=== PATIENT | female | born 1990 | race Hispanic/Latino ===

== ENCOUNTER 2019-05-08 00:04 | Observation (INO) | payer BC ==
[~2019-05-08 00:04] MED LIST: BETAMET ACET/BETAMET NA PH 6 MG/ML VIAL IM ONE; TERBUTALINE SULF 1 MG/1ML ONE; hydrOXYzine HCl 25 MG TAB ONE
[2019-05-08] MEDS ORDERED: hydrOXYzine HCl 25 MG TAB PO PRN (00:59)
[2019-05-08] MEDS ORDERED: TERBUTALINE SULF 1 MG/1ML SQ ONE (01:01)
[2019-05-08] MEDS: NIFEdipine 10 MG CAP PO SCH ×2 (08:12→14:34)
--- NOTE | 2019-05-08 08:24 | P.PN ---
Date of Service: 05/08/19 No complaints this am, rested well. No regular ctx seen. Plan, start Nifedipin po, watch for ctx, give second dose of Celestone this evening.
[2019-05-08] MEDS ORDERED: PRENATAL VITAMIN PO SCH (09:00)
[2019-05-08] MEDS ORDERED: DOCUSATE NA/SENNA CONC 1 TAB PO SCH (09:00)
[2019-05-08] MEDS ORDERED: AMLODIPINE 10 MG TAB PO SCH (09:00)
--- NOTE | 2019-05-08 13:17 | PREOPHP ---
Date of Admission: 05/08/2019 History Of Present Illness: Ms. Zamudio is a 29-year-old female, 3, para 0- 0-2-0, now at approximately 29 weeks gestation. She has been noticing more pelvic pressure, discomfo rt, heaviness and was brought to Labor and Delivery for monitoring to see if she was having contracti ons. Urine culture had been done last week, which was negative. Past Medical History: Please see record. Family History: Please see record. Review of Systems: She reports no recent cough, cold, fever, or chills. No recent nausea or vomiting. has been active. She denies any vaginal bleeding or spotting. She has had some constipation issues. Physical Examination: General: Reveals pleasant female, in no apparent distress. Neck: Supple without adenopathy or thyromegaly. Lungs: Clear. Cardiac: Regular rate and rhythm without murmurs. Breasts: Not examined. Abdomen: Estimated weight consistent with gestational age of 29 weeks. Pelvic: Exam in the office yesterday, cervix was closed, 50%, vertex -1 station. Extremities: No cyanosis, clubbing, or edema. On initial evaluation, she was having regular contrac tions approximately every 3-4 minutes. Because of this, was given a dose of terbutaline and p.o. Colton rax. Contractions stopped almost immediately. She was dismissed to return for her second dose of Ce lestone Soluspan for lung maturity. She returned, however, late in the evening with continued cramping, although regular contractions were not seen. Because of this, she was admitted, given 1 an other dose of terbutaline and a p.o. Atarax and will be observed through the day. Will be started on nifedipine 20 mg 1 p.o. t.i.d. and see how she does during the day and we will get her second dose o f Celestone Soluspan, at that time we can determine whether or not she should be sent home or not. Impression: 1.A 29 week . 2. labor. Plan: As above. NERI/TYLER Voice ID: [id number]
[2019-05-08] MEDS ORDERED: BETAMET ACET/BETAMET NA PH 6 MG/ML VIAL IM ONE (17:45)
--- NOTE | 2019-05-09 02:24 | DS ---
Hospital Course: Ms. Zamudio is a 29-year-old , female, 3, para 0-0-2-0, now at 29+ weeks' gestation, admitted in for suspected labor with some cervical change. Because of this, she was given 2 doses of Celestone Soluspan 24 hours apart and after a couple of doses of te rbutaline, was started on nifedipine 20 mg 1 p.o. t.i.d. She did well during the day with few of any contractions. She will be dismissed to be seen back in my office in 1 week after her last dose of C elestone. NERI/TYLER Voice ID: [id number] Report ID: [id number]
== END 2019-05-09 17:00 | disposition home or self-care (01) ==
LOC: L&D 00:04 → 2ND-WC 00:41
PROVIDERS: ADMIT Specialist; ATTEND Specialist
DX: O60.03 Preterm labor without delivery, third trimester (principal); Z3A.29 29 weeks gestation of pregnancy
CPT/HCPCS: 96372; G0378; J3105

== ENCOUNTER 2019-07-03 11:18 | Inpatient (IN) | payer BC ==
[2019-07-03] MEDS ORDERED: Ringers Lactate 1,000 ML IV PRN (11:39)
[2019-07-03 11:41] VITALS: BMI 29.6
[2019-07-03] MEDS ORDERED: BUTORPHANOL 1 MG/ML INJ IV ONE (11:42)
[2019-07-03] MEDS ORDERED: PROMETHAZINE 25 MG/ML VIAL IV ONE (11:42)
[2019-07-03] MEDS ORDERED: OXYTOCIN/LR 20 UNIT/1,000 ML BAG IV ONE (11:55)
[2019-07-03] MEDS ORDERED: Ringers Lactate 1,000 ML IV SCH (12:00)
[2019-07-03] MEDS ORDERED: OXYTOCIN/LR 20 UNIT/1,000 ML BAG IV SCH ×2 (12:00→23:45)
[2019-07-03 12:15] LABS: Absolute Lymphocytes (CBC) 1.2 K/uL (0.7-4.9); Basophils % 0.3 % (0-1.3); Hematocrit 36.5 % (36.0-45.0); Lymphocytes % 14.9 % (15.3-44.8); MPV 11.6 fL (7.6-11.3); RBC Red Blood Cell Count 4.01 M/uL (3.86-4.86)
--- NOTE | 2019-07-03 15:24 | PREOPHP ---
Date of Admission: 07/03/2019 History Of Present Illness: Ms. Zamudio is a 29-year-old female, 2, para 0-0 -1-0, now at 37 weeks gestation. She has been followed by me during this with possible pre term labor. She had been on medication for this until stopped at 36 weeks gestation. She presents w ith a 24-hour history of possible rupture of membrane. She was evaluated in Labor and Delivery and w ith negative evaluation. However, she has continued leaking, presents for her normal exam, were chito s rupture of membranes is confirmed. She denies recent cough or cold. Past Medical History: Please see record. Family History: Please see record. Review of Systems: She reports no recent cough, cold, fever, or chills. No recent nausea or vomiting. No breast knots or lumps. No bowel or bladder issues. Infant has been active. She has continued to leak since yest erday morning about 5 a.m. Physical Examination: General: Reveals pleasant female, in no apparent distress. Neck: Supple without adenopathy or thyromegaly. Lungs: Clear. Cardiac: Regular rate and rhythm without murmurs. Breasts: Not examined. Abdomen: Estimated weight approximately 7 pounds. Pelvic: Cervix noted to be 1 cm, 50% effaced, vertex, and -1 to -2 station. Gross pooling of amniot ic fluid, which was rapidly Nitrazine positive is noted in the vaginal vault. Extremities: No cyanosis, clubbing, or edema. Impression: 1.A 37 weeks . 2.Spontaneous premature rupture of membranes. Plan: Patient will be admitted for delivery. She is strep negative. We will simply watch the infan t for signs of amnionitis and we will induce labor. NERI/MODL Voice ID: [id number]
[2019-07-03] MEDS ORDERED: FENTANYL CITR 100 MCG/2 ML IV ONE (17:00)
[2019-07-03] MEDS ORDERED: ROPIVACAINE HCL 20 ML ONE (17:50)
[2019-07-03] MEDS ORDERED: 0.2% ROPIVACAINE (200 MG/100 ML) BAG IV ONE ×2 (18:00)
--- NOTE | 2019-07-03 19:08 | P.PN ---
Date of Service: 07/03/19 Cx 4cm, pt has epidural in place, periodic decellerations with good recovery with late onset noted, 02 on, bolus of fluid given, positioned to left lateral position, will do type and screen and observe for resolution. Discussed with pt. and and staff.
[2019-07-03 19:13] LABS: Urine Appearance CLEAR; Urine Bilirubin NEGATIVE (NEG); Urine Blood NEGATIVE (NEG); Urine Color YELLOW; Urine Glucose NEGATIVE (NEG); Urine Protein NEGATIVE (NEG); Urine Specific Gravity 1.015 (1.005-1.030); Urine Urobilinogen 0.2 mg/dL (0.2-1.0)
[2019-07-03 19:51] LABS: Urine Bacteria <20 /HPF (<20); Urine Culture Reflex Order NOT NEEDED; Urine RBC <5 /HPF (NONE SEEN)
[2019-07-03] MEDS ORDERED: METHYLERGONOVINE 0.2MG/ML AMP IM ONE (20:33)
[2019-07-03] MEDS ORDERED: CARBOPROST TROME 250 MCG/ML IM ONE (20:33)
[2019-07-03] MEDS ORDERED: LIDOCAINE 1% MPF 30 ML VIAL ONE (20:33)
[2019-07-03] MEDS ORDERED: METHYLERGONOVINE 0.2 MG TAB PO PRN (23:31)
[2019-07-03] MEDS ORDERED: CARBOPROST TROME 250 MCG/ML IM PRN (23:31)
[2019-07-03] MEDS ORDERED: ONDANSETRON 4 MG (ODT) TAB PO PRN (23:31)
[2019-07-03] MEDS ORDERED: METHYLERGONOVINE 0.2MG/ML AMP IM PRN (23:31)
--- NOTE | 2019-07-03 23:35 | P.BOP ---
Preoperative diagnosis: 37 wk , prolonged PROM, non-reassuring fht's Postoperative diagnosis: same, delivery viable female infant Primary procedure: low forceps, vtx OA Secondary procedure: right midline episiotomy and repair Estimated blood loss: less than 300ml Anesthesia: epidural Complications: None Transferred to: Other (273) Condition: Good
[2019-07-03] MEDS: IBUPROFEN 200 MG TAB PO PRN (23:45)
[2019-07-04 05:35] LABS: Absolute Lymphocytes (CBC) 1.4 K/uL (0.7-4.9); Basophils % 0.4 % (0-1.3); Hematocrit 33.2 % (36.0-45.0); Lymphocytes % 11.3 % (15.3-44.8); MPV 11.1 fL (7.6-11.3); RBC Red Blood Cell Count 3.68 M/uL (3.86-4.86)
--- NOTE | 2019-07-04 07:31 | P.PN ---
No ocmplaints except soreness of perineum, routine post care discussed. Probable dismissal on .
[2019-07-04] MEDS: Oxycodone HCl/Acetaminophen 1 TAB TAB PO PRN ×3 (07:33→21:00)
[2019-07-04] MEDS: DOCUSATE CALCIUM 240 MG CAP PO PRN (14:41)
[2019-07-04] MEDS: IBUPROFEN 200 MG TAB PO PRN (19:45)
[2019-07-04 21:15] LABS: RPR (Rapid Plasma Reagin) NON-REACT (NON-REACT)
[2019-07-05] MEDS: IBUPROFEN 200 MG TAB PO PRN (05:15)
[2019-07-05] MEDS: DOCUSATE CALCIUM 240 MG CAP PO PRN (05:15)
[2019-07-05] MEDS: Oxycodone HCl/Acetaminophen 1 TAB TAB PO PRN (06:00)
--- NOTE | 2019-07-05 06:29 | OP ---
Surgeon: Alejandro Lei MD Ms. Zamudio is a 29-year-old female, 3, para 0020, 37 weeks' gestation, admit nancie with spontaneous premature rupture of membranes. She had been evaluated approximately 30 hours p rior to admission for possible rupture of membranes. This could not be documented, but she gave hist ory of continued leakage of fluid. She was seen in my office for an obstetrical visit. Gross ruptur e of membranes was confirmed. She was admitted for induction of labor. After first stage of labor o f approximately 9 hours, second stage of labor of 1 hour and 34 minutes, she was delivered by low for ceps of a 6 pound 4 ounce female infant, 9 and 9 over a right midline episiotomy with epidural anesthesia. She had received 1 mg of Stadol, 12.5 mg of Phenergan IV x1 prior to placement of epidur al catheter. Infant was delivered by forceps in vertex OA presentation secondary to nonreassuring fe jaylen heart rate with reduced variability and possible late decelerations. Infant was delivered after delayed cord clamping. The cord was clamped, cut, and the placed on mother's upper abdomen. Cord blood was obtained. The placenta was spontaneously expelled and appeared to be intact. Intraut erine examination revealed no retained placental fragments. Right midline episiotomy was repaired in the usual fashion with 3-0 Vicryl suture. Tolerated all procedures well. Estimated total blood los s was less than 300 mL. NERI/TRACEYL Voice ID: [id number] Report ID: [id number]
[2019-07-05 07:36] VITALS: BP 131/72; TEMP 97.5
[2019-07-05 13:20] LABS: HBsAG Nonreactive (Nonreactive)
--- NOTE | 2019-07-06 05:51 | DS ---
Date of Discharge: 07/05/2019 Final Hospital Discharge Diagnoses: 1.37-week , delivered. 2.Prolonged rupture of membranes. Complications: None. Procedures: Placement of epidural catheter, Pitocin augmentation of labor, low forceps delivery of v iable female infant, right midline episiotomy with repair. Hospital Course: Patient is a 29-year-old female, 3, para 0-0-2-0 at 37 wee ks' gestation, who delivered a 6-pound 4-ounce female , 9 and 9. She was dismissed on first day, ambulatory, on a select diet with routine post vaginal delivery activity rest rictions, to be seen back in my office in 1 week. Lab work included an admission hemoglobin and maddy tocrit of 12.8 and 36.5, dismissal 11.5 and 33.2. She is Rh positive blood type, rubella immune. Sh e was dismissed to continue taking her iron and vitamins, continue her thyroid medication wi prescription for Tylenol No. 3, #10 tablets for pain relief with usual post vaginal delivery activ ity restrictions. NERI/TYLER Voice ID: [id number] Report ID: [id number]
== END 2019-07-05 10:30 | disposition home or self-care (01) | DRG 807 ==
LOC: 2ND-WC 11:18
PROVIDERS: ADMIT Specialist; ATTEND Specialist
PROC: 10D07Z3 Extraction of Products of Conception, Low Forceps, Via Natural or Artificial Opening (ICD-10-PCS; principal; 2019-07-03)
PROC: 0W8NXZZ Division of Female Perineum, External Approach (ICD-10-PCS; 2019-07-03)
DX: O76 Abnormality in fetal heart rate and rhythm complicating labor and delivery (principal); Z37.0 Single live birth; Z3A.37 37 weeks gestation of pregnancy
CPT/HCPCS: 36415; 81001; 85025; 86592; 86850; 86900; 86901; 87340; J0595; J2210; J2550; J2590; J2795; J3010